=== PATIENT | female | born 1965 | race Caucasian/White ===

== ENCOUNTER 2020-04-25 08:35 | Outpatient (CLI) | payer OTHER, SELFPAY ==
--- NOTE | ~2020-04-25 | MM_ITS ---
EXAMINATION: MM screening farhan BI w harriet HISTORY: Screening TECHNIQUE: Craniocaudal and mediolateral oblique 3-D tomosynthesis images were obtained and synthetic 2-D images were generated. CAD analysis was submitted and interpreted. COMPARISON: Comparison to multiple prior studies sequentially, with oldest reviewed study dated 02/15. BREAST PARENCHYMAL COMPOSITION: The breasts are heterogeneously dense, which may obscure small masses . FINDINGS: There is no evidence of suspicious mass, calcification, or architectural distortion to sugg est malignancy in either breast. There has been no suspicious interval change. IMPRESSION: 1. No mammographic evidence of malignancy. 2. Recommend routine screening mammography in one year. BI-RADS Category 1: Negative Reviewed, dictated and finalized at location A. [employer]OR OF ANALYTICAL DEVELOPMENT
== END 2020-04-25 08:36 | disposition home or self-care (01) ==
PROVIDERS: PCP Family Medicine; Visit Provider Obstetrics & Gynecology
DX: Z12.31 Encounter for screening mammogram for malignant neoplasm of breast (principal)
CPT/HCPCS: 77063; 77067

== ENCOUNTER 2021-09-06 10:37 | Outpatient (CLI) | payer OTHER, SELFPAY ==
--- NOTE | ~2021-09-06 | MM_ITS ---
EXAMINATION: MM screening farhan BI w harriet HISTORY: Screening mammogram TECHNIQUE: Craniocaudal and mediolateral oblique 3-D tomosynthesis images were obtained and synthetic 2-D images were generated. CAD analysis was submitted and interpreted. COMPARISON: 04/25/2020, 02/22/2019, 11/11/2017 bilateral screening mammogram examinations BREAST PARENCHYMAL COMPOSITION: The breasts are heterogeneously dense, which may obscure small masses . FINDINGS: There is no evidence of suspicious mass, calcification, or architectural distortion to sugg est malignancy in either breast. There has been no suspicious interval change. IMPRESSION: 1. No mammographic evidence of malignancy. 2. Recommend routine screening mammography in one year. BI-RADS Category 1: Negative Reviewed, dictated and finalized at location A.
== END 2021-09-06 10:38 | disposition home or self-care (01) ==
PROVIDERS: PCP Family Medicine; Visit Provider Obstetrics & Gynecology
DX: Z12.31 Encounter for screening mammogram for malignant neoplasm of breast (principal)
CPT/HCPCS: 77063; 77067

== ENCOUNTER → 2022-08-21 15:49 | Outpatient (CLI) | payer OTHER, SELFPAY ==
--- NOTE | ~2022-08-21 | US_ITS ---
EXAMINATION: US retroperitoneal duplex ltd DATE: 08/21/2022 16:44 INDICATION: Renal artery stenosis. Hypertension. TECHNIQUE: Multiple grayscale, color Doppler, and pulsed Doppler images of the kidneys and renal malinda zheng were obtained. COMPARISON: 03/14/2015 FINDINGS: The aorta peak systolic velocity is 121 cm/s. The right renal artery peak systolic velocity is 199 cm /s in the proximal segment, 161 cm/s in the mid segment, and 75 cm/s in the distal segment. The left renal artery peak systolic velocity is 90 cm/s in the proximal segment, 125 cm/s in the mid segment, and 64 cm/s in the distal segment. IMPRESSION: 1. Unchanged elevation peak systolic velocities in the proximal right renal artery consistent with r enal artery stenosis >50-60%. 2. Normal peak systolic velocities in the left renal artery with no hemodynamically significant steno sis. Reviewed, dictated and finalized at location A. IMPRESSION: 1. Unchanged elevation peak systolic velocities in the proximal right renal ar michael consistent with renal artery stenosis >50-60%. 2. Normal peak systolic velocities in the left renal artery with no hemodynamic ally significant stenosis.
== END ==
PROVIDERS: PCP Nurse Practitioner Family; Visit Provider Nurse Practitioner
DX: I70.1 Atherosclerosis of renal artery (principal)
CPT/HCPCS: 93976

== ENCOUNTER 2023-02-18 15:57 | Outpatient (CLI) | payer OTHER, SELFPAY ==
--- NOTE | ~2023-02-18 | MM_ITS ---
EXAMINATION: MM screening farhan BI w harriet HISTORY: Screening mammogram, family history of breast cancer in her mother. TECHNIQUE: Craniocaudal and mediolateral oblique 3-D tomosynthesis images were obtained and synthetic 2-D images were generated. CAD analysis was submitted and interpreted. COMPARISON: 09/06/2021, 04/25/2020, 02/22/2019 BREAST PARENCHYMAL COMPOSITION: There are scattered areas of fibroglandular density. FINDINGS: No suspicious mass, calcification, or architectural distortion are identified in either clementine ast to suggest malignancy. There has been no suspicious interval change. IMPRESSION: 1. No mammographic evidence of malignancy. 2. Recommend routine screening mammography in one year. BI-RADS Category 1: Negative Reviewed, dictated and finalized at location A.
== END 2023-02-18 15:58 | disposition home or self-care (01) ==
LOC: ANHIMG 15:59
PROVIDERS: PCP Nurse Practitioner Family; Visit Provider Obstetrics & Gynecology
DX: Z12.31 Encounter for screening mammogram for malignant neoplasm of breast (principal)
CPT/HCPCS: 77063; 77067

== ENCOUNTER 2023-12-14 14:19 | Outpatient (CLI) | payer OTHER, SELFPAY ==
--- NOTE | 2023-12-14 14:34 | ECG_ITS ---
Test Date: 2023-12-14 15:07:56 Measurements Intervals [place] Rate: 76 P: 31 AK: 144 QRS: 38 QRSD: 89 T: 36 QT: 395 QTc: 446 Interpretive Statements SINUS RHYTHM BASELINE ARTIFACT- I, II, III, AVR, AVL, AVF, V4-V6 NORMAL ECG No previous ECG available for comparison Electronically Signed On 12-14-2023 15:11:35 CDT by Humberto Peterson D.O.
[2023-12-14 15:18] LABS: Basophils Absolute Auto 0.1 K/mm3 (0.0-0.1); Basophils Percent Auto 0.7 % (0.2-1.2); Eosinophils Absolute Auto 0.1 K/mm3 (0-0.3); Eosinophils Percent Auto 1.4 % (0-4.4); Hemoglobin 12.7 g/dL (12.0-15.0); Immature Granulocyte Absolute 0.02 K/mm3 (0.00-0.031); Immature Granulocyte Percent A 0.2 % (0-0.5); Lymphocytes Absolute Auto 3.25 K/mm3 (0.9-3.2); Lymphocytes Percent Auto 37.8 % (18.3-44.2); Mean Corpuscular HGB Conc 33.4 g/dl (32-36); Mean Corpuscular Hemoglobin 30.4 pg (26-34); Mean Corpuscular Volume 90.9 fl (80-100); Mean Platelet Volume 9.4 fl (7.4-10.4); Monocytes Absolute Auto 0.7 K/mm3 (0.1-0.6); Monocytes Percent Auto 8.5 % (2.6-8.5); Neutrophils Absolute Auto 4.4 K/mm3 (1.3-6.7); Neutrophils Percent Auto 51.4 % (45.5-73.1); Platelet Count Result 341 k/mm3 (150-375); Red Blood Count 4.18 M/mm3 (4.2-5.4); Red Cell Distribution Width 11.4 % (11.5-14.5); White Blood Count 8.6 K/mm3 (4.5-10.0)
== END 2023-12-14 14:20 | disposition home or self-care (01) ==
LOC: ANHSURGERY 14:30
PROVIDERS: PCP Family Medicine; Visit Provider Obstetrics & Gynecology
DX: N81.4 Uterovaginal prolapse, unspecified (principal); I10 Essential (primary) hypertension; Z01.818 Encounter for other preprocedural examination
CPT/HCPCS: 36415; 85025; 86850; 86900; 86901; 93005

== ENCOUNTER 2023-12-18 00:37 | Day surgery (SDC) | payer OTHER, SELFPAY ==
[2023-12-14 10:28] VITALS: BMI 27.5
--- NOTE | 2023-12-14 10:29 | PC.NURSE ---
Report to the Outpatient Waiting Room, entrance under the green pavilion located off [facility], at time _0600_ on date _[id number]_. Planned Procedure Time: _0730_. Time changes happen often and if your time is changed the preop area will call you the afternoon before. - You and your visitor will be asked to self-screen and do not enter if you have any COVID symptoms. - A mask is optional within the hospital at this time. Patients may have clear liquids (water, carbonated beverages, clear teas, apple juice) until 3 hours prior to surgery with a maximum of 20 ounces. - No food from midnight until time of surgery Take the following medications with a SIP of water the morning of surgery: __None DO NOT STOP ANY OF YOUR OTHER PRESCRIPTION MEDICATIONS PRIOR TO SURGERY ?EXCEPT THE FOLLOWING Medications to discontinue per physician Vitamins and fish oil Date to take last [id number] Please no make-up, nail kinyarwanda, hairspray, perfume, deodorant, or body powder the day of surgery. No jewelry (including any body piercings) or valuables the day of surgery, leave them at home. Please take a shower or bath the night before, or the morning of, surgery with an antibacterial soap. Wear comfortable, loose fitting clothing. - Jewelry must be removed prior to entering the operating room. Rings and piercings that are not removed may be cut off. - The hospital will not accept responsibility for valuables. - Please leave all valuables, including medications, at home the day of surgery. If you are going home after surgery, a licensed courier delivery driver must drive you home. - NO public transportation without another adult if you receive anesthesia. - We recommend that an adult stay with you for 24 hours following discharge. - We also recommend that you do not drive, make important decision, drink alcoholic beverages, or take any drugs that were not prescribed by your health care provider for at least 24 hours after your discharge time. Follow any additional instructions given to you from your surgeon. If you or anyone in your household have experienced Covid symptoms in the past week, please notify your surgeon or the nurse liaison at the phone number below for possible testing. Telephone instructions given to _Deborah__and asked if any additional questions and then verbalized understanding. Patient advised to call surgeon office or pre surgery nurse liaison [phone] if any additional questions.
--- NOTE | 2023-12-16 06:35 | PM.IMHP ---
H&P: HPI History of Present Illness Date/Time: 12/16/23 06:35 Chief Complaint: Recurrent high-grade dysplasia/pelvic pain/uterine prolapse Narrative: This is a 58-year-old 2 para 2 admitted for robotic hysterectomy bilateral salpingo-oophorectomy secondary to recurrent abnormal Paps including high-grade dysplasia a . She has had a negative endometrial biopsy and negative endocervical curette. He also has uterine prolapse would like to have this definitively fix. Risks and benefits were reviewed including the exclusive of , aspiration pneumonia, bleeding, transfusion, perforation injury to bowel, bladder, ureters, or other internal organs with need for open laparotomy. She had all questions answered. She received the ACOG handouts entitled hysterectomy as well as the de Kaylie handout. She asked to proceed PMFSH Past Medical History Medical History Essential (primary) hypertension (~2014) Hyperlipidemia LDL goal <100 (~2014) Migraine (~2014) Renal artery stenosis (~2014) Surgical History Surgical History S/P cholecystectomy (~2004) Family History Family History Sibling Hypertension Family history of type 2 diabetes mellitus Social History Social History Smoking status: Never smoker Alcohol intake: current Alcohol use details: rarely Substance use: never Substance use type: does not use Lack of Transportation: No Lack of Food: Never True Current Housing: I Have Housing Concerned About Future Housing: No Difficulty Paying Gas/Electric Bills: No Difficulty Paying for Meds: No Currently Unemployed: No Education: High School Diploma/GED Difficulty w/ Childcare or Family Care: No Living arrangements: with family Occupation/Education: occupation Gender identity (if verbalized by the patient): Female Sexual Orientation (if Verbalized by the Patient): Straight or Heterosexual Spiritual care concerns: No Agree to blood products: Yes Meds Home Medications and Allergies Home Medications Medication Instructions Recorded Confirmed Type sumatriptan succinate 50 mg tablet 50 mg PO ONCE #7 tabs 04/21/22 12/14/23 Rx estradiol-norethindrone acet 1 1 tablet PO DAILY 06/13/22 12/14/23 History mg-0.5 mg tablet propranolol 80 mg capsule,24 80 mg PO DAILY #90 caps 10/01/23 12/14/23 Rx hr,extended release rosuvastatin 20 mg tablet 20 mg PO DAILY #90 tabs 10/01/23 12/14/23 Rx fenofibrate 54 mg tablet 54 mg PO DAILY #90 tabs 11/25/23 12/14/23 Rx cholecalciferol (vitamin D3) 25 25 mcg PO DAILY 12/14/23 12/14/23 History mcg (1,000 unit) capsule (Vitamin D3) diphenhydramine HCl 25 mg capsule 25 mg PO HS 12/14/23 12/14/23 History (Benadryl) magnesium 250 mg tablet 250 mg PO DAILY 12/14/23 12/14/23 History omega 9-mpw-qrh-fish oil 1,200 mg 1 cap PO DAILY 12/14/23 12/14/23 History (144 mg-216 mg) capsule (Fish Oil) Allergies Allergy/AdvReac Type Severity Reaction Status Date / Time No Known Allergies Allergy Mild Verified 12/14/23 10:16 Exam Const: General: cooperative, healthy appearing and comfortable Nutritional Appearance: average body habitus Orientation/consciousness: oriented to person, oriented to place and oriented to time Resp: Effort & Inspection: normal respiratory effort Cardio: Rate: regular rate Rhythm: regular rhythm Heart sounds: S1 normal heart sound present and S2 normal heart sound present GI: Inspection: normal to inspection : External Female Exam: normal external appearance Speculum Exam - Vagina: normal appearance of the vagina Speculum Exam - Cervix: normal appearance of the cervix Bimanual exam- vagina & uterus: enlarged, Uterine tenderness and other (Second-degree prolapse present) Bim
[2023-12-18] VITALS (14 sets, daily range): BP systolic 109–134; BP diastolic 53–90; PULSE 57–92; RESP 10–18; TEMP 36.2–36.6; O2SAT 93–100
--- NOTE | 2023-12-18 05:17 | WPDHPUPDATE1 ---
History and Physical Update Update Date/Time: 12/18/23 05:17 History and Physical has been reviewed, including an updated exam of the patient. There are NO changes in the patient's condition. Risks, benefits, and alternatives have been discussed and questions answered. Patient agrees to proceed with procedure.
[2023-12-18] MEDS: LACTATED RINGERS 1,000 ML 30 ML IV CONT ×2 (06:30→08:49)
[2023-12-18] MEDS: ACETAMINOPHEN 500 MG TABLET 1000 MG PO (06:34)
[2023-12-18] MEDS: KETOROLAC 15 MG/ML VIAL (*BKC) IV PUSH (06:34)
--- NOTE | 2023-12-18 06:47 | WPDANESEPPF ---
Anes - Initial Pre Proc Eval Procedure: Operation Date: 12/18/23 07:30 Proposed Procedures p Robotic Assisted Total Vaginal Hysterectomy with Bilateral Salpingectomy - John Wisdom MD Date/Time: 12/18/23 06:47 Surgeon: John Wisdom MD Pre Op Diagnosis: Uterine Prolapse, Recurrent Abnormal Pap Patient Data Age: 58 Gender: F Height: 1.63 m Weight: 72.7 kg Allergies Allergy/AdvReac Type Severity Reaction Status Date / Time No Known Allergies Allergy Mild Verified 12/14/23 10:16 Home Medications Medication Instructions Recorded Confirmed Type sumatriptan succinate 50 mg tablet 50 mg PO ONCE #7 tabs 04/21/22 12/14/23 Rx estradiol-norethindrone acet 1 1 tablet PO DAILY 06/13/22 12/14/23 History mg-0.5 mg tablet propranolol 80 mg capsule,24 80 mg PO DAILY #90 caps 10/01/23 12/14/23 Rx hr,extended release rosuvastatin 20 mg tablet 20 mg PO DAILY #90 tabs 10/01/23 12/14/23 Rx fenofibrate 54 mg tablet 54 mg PO DAILY #90 tabs 11/25/23 12/14/23 Rx cholecalciferol (vitamin D3) 25 25 mcg PO DAILY 12/14/23 12/14/23 History mcg (1,000 unit) capsule (Vitamin D3) diphenhydramine HCl 25 mg capsule 25 mg PO HS 12/14/23 12/14/23 History (Benadryl) magnesium 250 mg tablet 250 mg PO DAILY 12/14/23 12/14/23 History omega 5-xdq-nwj-fish oil 1,200 mg 1 cap PO DAILY 12/14/23 12/14/23 History (144 mg-216 mg) capsule (Fish Oil) hydrocodone 5 mg-acetaminophen 325 1 tablet PO Q4H PRN pain #30 tabs 12/18/23 Rx mg tablet Patient hx anesthesia problems: none Family hx anesthesia problems: none Results Review: All pre-operative results and documents have been reviewed as part of the pre-operative evaluation. [facility] Past Medical History Medical History Essential (primary) hypertension (~2014) Hyperlipidemia LDL goal <100 (~2014) Migraine (~2014) Renal artery stenosis (~2014) Surgical History Surgical History S/P cholecystectomy (~2004) Family History Family History Sibling Hypertension Family history of type 2 diabetes mellitus Social History Social History Smoking status: Never smoker Alcohol intake: current Alcohol use details: rarely Substance use: never Substance use type: does not use Lack of Transportation: No Lack of Food: Never True Current Housing: I Have Housing Concerned About Future Housing: No Difficulty Paying Gas/Electric Bills: No Difficulty Paying for Meds: No Currently Unemployed: No Education: High School Diploma/GED Difficulty w/ Childcare or Family Care: No Living arrangements: with family Occupation/Education: occupation Gender identity (if verbalized by the patient): Female Sexual Orientation (if Verbalized by the Patient): Straight or Heterosexual Spiritual care concerns: No Agree to blood products: Yes Anes - Eval Final PreProcedure Day of Procedure 12/18/23 06:47 Patient weight: overweight Heart: regular rate and rhythm Lungs: clear to auscultation Airway: Mallampati scale class II Neurological: alert and oriented Last oral intake: >/= 8 hours ASA classification: II Emergent: no Anesthetic plan: proceed Anesthesia type and monitoring: general ETT and standard monitoring Results Review: All pre-operative results and documents have been reviewed as part of the pre-operative evaluation. Informed Consent: The patient's anesthetic plan and its attendant risks and benefits were discussed with the patient/family/POA. Questions were solicited and answers provided to the satisfaction of the patient/family/POA.
[2023-12-18] MEDS: SCOPOLAMINE 1 MG PATCH 1 PATCH TRANSDERM (07:00)
[2023-12-18] MEDS: ceFAZolin 2 GM/D5W 50 ML 2 GM/50 ML BAG IVPB (07:43)
--- NOTE | 2023-12-18 08:41 | W.PM.PROC2 ---
Procedure Note - Detailed Date of Procedure 12/18/23 Pre-op Diagnosis Uterine Prolapse, Recurrent Abnormal Pap Post-op Diagnosis Same Procedure Performed robotic Total vaginal hysterectomy bilateral salpingo-oophorectomy Surgeon John Wisdom MD Anesthesia General Indications this is a 58-year-old female with recurrent abnormal Paps and uterine prolapse and pelvic pain Findings uterine prolapse was seen. Moderate size uterine fibroid. Normal appearing ovaries and tubes. Description of Procedure the patient is prepped and draped in the normal sterile fashion placed in dorsal lithotomy position. Under excellent general tracheal anesthesia weighted speculum placed in posterior fornix vagina. Anterior lip of the cervix grasped with single-tooth tenaculum. Uterus sounded to 11cm. Serial dilatation with fragmented dilators performed followed passes the 10. SHANTA and the 3. 0.5 cold cup. This weighted speculum was removed and the single-tooth was removed. The gloves were changed. A supraumbilical incision was made the previous supraumbilical incision site. Veress needle passed in the abdomen. Abdomen filled with CO2 gas [id number]. The 8mm trocar advanced under direct visualization with the vision visualizing scope and no injury seen. Patient placed in 18? Trendelenburg. Right left lateral quadrant incisions were made 8mm trocars advanced under direct visualization assuring no injury. A right upper quadrant incision was then made. The 8mm trocar preschool assistant principal port was entered without injury. Robot was docked. Attention was turned to the marriage counselor minister. The left round ligament was grasped, burned, cut. Anterior bladder flap was formed by sharply dissecting the peritoneum and reflecting it laterally and caudally away from the cervix uterus the opposite round ligament was clamped, burned, cut. Next the left infundibulopelvic structure was skeletonized to remove the left ovary and tube. This was serially clamped, burned, cut and brought to level previously cut round ligament. In similar fashion on the right the infundibulopelvic structures were skeletonized and clamped, burned, cut to remove the right ovary and tube. This was brought to low previous cut round ligament. The cardinal broad ligaments on the left were skeletonized hugging the e back to the midline. cervix and uterus clamping burning cutting and bringing this down to the tortuous blood vessels on the left. These were individually clamped, burned, cut. In similar fashion on the right the cardinal broad ligaments were serially skeletonized clamping, burning, cutting until the uterine vessels could be seen on the right. These were individually clamped, burned, cut. Blanching the uterus was noted and a colpotomy incision made. Cervix uterus ovaries and tubes and removed through the vagina. The vagina was then closed with continuous running 0V lock from lateral edge . The vagina was then sprinkled with [place] term over the raw surface area. The robot was undocked. The gas removed from the abdomen. The incisions closed with 4-0 Monocryl glue. The patient was awakened were prepped in satisfactory condition. All sponge, needle, instrument counts were correct. There were no immediate complications Estimated Blood Loss 25 Drains No Packing No Pathology Yes Complications No immediate complications Condition Stable Disposition PACU
--- NOTE | 2023-12-18 08:47 | PM.DS ---
DS: Admitting Diagnosis Discharge Date 12/19/2023 Admitting Diagnosis uterine fibroids/uterine prolapse/recurrent dysplasia DS: Discharge Diagnosis Discharge Diagnosis (1) Abnormal Pap smear of cervix: Code(s): R87.619 - Unspecified abnormal cytological findings in specimens from cervix uteri Status: Acute (2) Pelvic pain: Code(s): R10.2 - Pelvic and perineal pain Status: Acute (3) Uterine prolapse: Code(s): N81.4 - Uterovaginal prolapse, unspecified Status: Acute DS: Summary Hospital Course Reason for hospitalization: patient was admitted for robotic total vaginal hysterectomy and bilateral salpingo-oophorectomy on 12/18/2023. Hospital Course: Patient's hospital course unremarkable. She remained afebrile. She was up, voiding without difficulty, eating a, ambulating generally without complaints. Time Spent with Patient Time attestation: Total time spent providing and/or coordinating discharge services: Exam Const: General: cooperative, healthy appearing and comfortable Nutritional Appearance: average body habitus Orientation/consciousness: oriented to person, oriented to place and oriented to time HENMT: Head: normal to inspection Resp: Effort & Inspection: normal respiratory effort Cardio: Rate: regular rate Rhythm: regular rhythm Heart sounds: S1 normal heart sound present and S2 normal heart sound present GI: Inspection: normal to inspection and incision ( Wounds are clean dry and intact) DS: Data Data Completed and Pending Pending studies at discharge: Pending at discharge 12/18/23 08:38 Surgical [PTH] Routine Discharge Plan Discharge Patient Disposition: Home, Self-Care Discharge Instructions: Remove the Scopolamine patch that was placed behind your ear in 72 hours or less. Wash your hands after touching. Stand Alone Forms: General Discharge Instructions Follow-up/Referrals: John Novoa MD [Physician] - Discharge Medications: New hydrocodone-acetaminophen 5-325 mg tablet 1 tablet PO Q4H PRN (Reason: pain) Qty: 30 0RF No Action estradiol-norethindrone acet 1-0.5 mg tablet 1 tablet PO DAILY Rx Instructions: Takes in evening. diphenhydramine HCl [Benadryl] 25 mg Capsule 25 mg PO HS magnesium 250 mg Tablet 250 mg PO DAILY cholecalciferol (vitamin D3) [Vitamin D3] 25 mcg (1,000 unit) Capsule 25 mcg PO DAILY omega 6-keq-dfm-fish oil [Fish Oil] 1,200 (144-216) mg Capsule 1 cap PO DAILY sumatriptan succinate 50 mg tablet 50 mg PO ONCE Qty: 7 1RF propranolol 80 mg capsule,extended release 24hr 80 mg PO DAILY Qty: 90 1RF Rx Instructions: Takes in evening. rosuvastatin 20 mg tablet 20 mg PO DAILY Qty: 90 1RF Rx Instructions: Takes in evening fenofibrate 54 mg tablet 54 mg PO DAILY Qty: 90 1RF Rx Instructions: Takes in evening
[2023-12-18] MEDS: fentaNYL CITRATE INJ (*CRX) 100 MCG/2 ML VIAL 25 MCG IV PUSH ×6 (09:13→09:45)
[2023-12-18] MEDS: ONDANSETRON INJ 4 MG/2 ML VIAL IV PUSH (09:16)
[2023-12-18] MEDS: HYDROmorphone HCL INJ (*CRX) 1 MG/ML SYR 0.5 MG IV PUSH ×2 (09:57→10:09)
--- NOTE | 2023-12-18 10:39 | PC.NURSE ---
pt arrived to [facility] Room 301 at 1035.
--- NOTE | 2023-12-18 10:58 | ADMGEN ---
This patient, Wendie Rees, was admitted to [facility] Surg Room 301-01. Patient/family oriented to hospital policies and general routines including ID bracelet, bed and alarms, visiting hours, pain management, procedures, bathroom and other care routines, personal items, smoking policy, room service/diet, and visiting hours. Information on how to activate the Rapid Response Team has been discussed. Patient/Family are encouraged to report perceived risks to care and to ask questions if they do not understand what they are told or what they should do.
[2023-12-18] MEDS: ENOXAPARIN 40 MG/0.4 ML SYRINGE SUB-Q (12:13)
[2023-12-18] MEDS: SIMETHICONE 80 MG TAB.CHEW PO ×2 (12:13→17:57)
[2023-12-18] MEDS: DOCUSATE SODIUM 100 MG CAPSULE PO ×2 (12:13→17:57)
[2023-12-18] MEDS: DEXTROSE 5%/LACTATED RINGERS 1,000 ML 125 ML IV CONT (12:17)
[2023-12-18] MEDS: HYDROcodone/acetaminophen (*CRX) 5-325 MG TABLET 1 TAB PO ×2 (16:09→22:30)
[2023-12-19] VITALS: BP 110/60; PULSE 71; RESP 20; TEMP 36.4; O2SAT 95
[2023-12-19 03:55] VITALS: BP 115/61; PULSE 79; RESP 20; TEMP 36.3; O2SAT 95
[2023-12-19] MEDS: HYDROcodone/acetaminophen (*CRX) 5-325 MG TABLET 1 TAB PO ×2 (03:58→08:26)
[2023-12-19 05:46] LABS: Basophils Percent Auto 0.2 % (0.2-1.2); Hematocrit 34.1 % (37.0-47.0); Hemoglobin 11.4 g/dL (12.0-15.0); Immature Granulocyte Absolute 0.24 K/mm3 (0.00-0.031); Immature Granulocyte Percent A 1.5 % (0-0.5); Lymphocytes Absolute Auto 2.69 K/mm3 (0.9-3.2); Lymphocytes Percent Auto 16.7 % (18.3-44.2); Mean Corpuscular HGB Conc 33.4 g/dl (32-36); Mean Corpuscular Hemoglobin 30.6 pg (26-34); Mean Corpuscular Volume 91.7 fl (80-100); Mean Platelet Volume 9.6 fl (7.4-10.4); Monocytes Absolute Auto 0.9 K/mm3 (0.1-0.6); Monocytes Percent Auto 5.8 % (2.6-8.5); Neutrophils Absolute Auto 12.2 K/mm3 (1.3-6.7); Neutrophils Percent Auto 75.8 % (45.5-73.1); Platelet Count Result 259 k/mm3 (150-375); Red Blood Count 3.72 M/mm3 (4.2-5.4); Red Cell Distribution Width 11.4 % (11.5-14.5); White Blood Count 16.1 K/mm3 (4.5-10.0)
--- NOTE | 2023-12-19 06:37 | PC.NURSE ---
On 12/19/23, the ASSISTANT PROGRAM MANAGER, [Sameera ], provided care and completed [employer] documentation on this patient. I have reviewed the ASSISTANT PROGRAM MANAGER's documentation and agree with the findings.
--- NOTE | 2023-12-19 07:27 | PM.GYNPNOP ---
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 Postoperative Procedures: Procedures Operation Date: 12/18/23 07:30 Actual Procedure Side Surgeon p Robotic Assisted Total Vaginal Hysterectomy with Bilateral Salpingo-oophorectomy Bilateral John Wisdom MD Postoperative day: 1 Postoperative status: doing well Postoperative plan: routine post-op care, see orders, ambulate, advance diet, voiding trials and discharge Time Spent With Patient Time: Total time spent is greater than 50% in coordination of care (as documented) at patient's floor/unit and/or counseling patient: Time with patient: less than 15 minutes GARNETT MACHINE OPERATOR HELPER- PN:Subj Post-Op Subjective Date/time seen: 12/19/23 07:27 Subjective: patient has no complaints, patient desires discharge, pain is well controlled and patient is tolerating oral intake Exam Const: General: cooperative, healthy appearing and comfortable Nutritional Appearance: average body habitus Orientation/consciousness: oriented to person, oriented to place and oriented to time Resp: Effort & Inspection: normal respiratory effort Cardio: Rate: regular rate Rhythm: regular rhythm Heart sounds: S1 normal heart sound present and S2 normal heart sound present GI: Inspection: normal to inspection and incision (cdi) GARNETT MACHINE OPERATOR HELPER - PN: Obj Data Vital Signs Vital Signs: Vital Signs - 24 hr 12/18/23 08:49 12/18/23 09:05 12/18/23 09:20 Temperature 97.5 F L Pulse Rate 68 75 60 Respiratory Rate 10 L 12 12 Blood Pressure 114/66 134/90 132/73 Pulse Oximetry 99 100 100 Oxygen Delivery Simple Face Mask Simple Face Mask Simple Face Mask Oxygen Flow Rate 6 8 8 12/18/23 09:35 12/18/23 09:50 12/18/23 10:05 Temperature Pulse Rate 67 73 60 Respiratory Rate 14 12 14 Blood Pressure 125/67 127/68 121/67 Pulse Oximetry 99 98 95 Oxygen Delivery Room Air Room Air Room Air Oxygen Flow Rate 12/18/23 10:20 12/18/23 10:40 12/18/23 10:55 Temperature 97.8 F 97.7 F Pulse Rate 65 75 60 Respiratory Rate 12 18 18 Blood Pressure 121/69 116/67 118/53 L Pulse Oximetry 94 93 93 Oxygen Delivery Room Air Oxygen Flow Rate 12/18/23 11:25 12/18/23 12:25 12/18/23 16:14 Temperature 97.6 F 97.7 F 97.2 F L Pulse Rate 57 L 65 92 Respiratory Rate 16 16 16 Blood Pressure 109/59 L 122/74 123/68 Pulse Oximetry 95 95 94 Oxygen Delivery Oxygen Flow Rate 12/18/23 11:00 12/18/23 20:00 12/18/23 20:00 Temperature 97.1 F L Pulse Rate 87 Respiratory Rate 14 Blood Pressure 116/58 L Pulse Oximetry 96 Oxygen Delivery Room Air Room Air Oxygen Flow Rate 12/19/23 00:00 12/19/23 03:55 Temperature 97.6 F 97.4 F L Pulse Rate 71 79 Respiratory Rate 20 20 Blood Pressure 110/60 115/61 Pulse Oximetry 95 95 Oxygen Delivery Oxygen Flow Rate Intake/Output Intake/Output: Intake & Output 12/16/23 12/17/23 12/18/23 12/19/23 23:59 23:59 23:59 23:59 Intake Total 2030 Output Total 1150 1100 Balance 880 -1100 Meds/Results Medications: Active Medications Generic Name Dose Route Start Last Admin Trade Name Freq PRN Reason Stop Dose Admin Hydrocodone Bitart/Acetaminophen 1 tab 12/18/23 10:29 12/19/23 03:58 Hydrocodone/Acetaminophen (*Crx) 5-325 Mg Tablet PO 1 tab Q3H PRN Administration Pain Rated 5 or Less Hydrocodone Bitart/Acetaminophen 1 tab 12/18/23 10:29 Hydrocodone/Acetaminophen (*Crx) 10-325 Mg Tablet PO Q3H PRN Pain Rated 6 or Greater Docusate Sodium 100 mg 12/18/23 10:29 12/18/23 17:57 Docusate Sodium 100 Mg Capsule PO 100 mg BID YAZMIN Administration Enoxaparin Sodium 40 mg 12/18/23 10:29 12/18/23 12:13 Enoxaparin 40 Mg/0.4 Ml Syringe SUB-Q 40 mg DAILY YAZMIN Administration Ibuprofen 600 mg 12/18/23 10:29 Ibuprofen 600 Mg Tablet PO Q6H PRN Cramping Ketorolac Tromethamine 30 mg 12/18/23 10:29 Ketorolac 30 Mg/Ml Vial (*Bkc) IV PUSH 12/23/23 10:28 Q6H PRN Pain Rated 4-6 Naloxone HCl 0.1 mg 12/18/23 10:29 N
[2023-12-19 08:00] VITALS: BP 114/58; PULSE 65; RESP 18; TEMP 37.1; O2SAT 95
[2023-12-19] MEDS: SIMETHICONE 80 MG TAB.CHEW PO (08:26)
[2023-12-19] MEDS: DOCUSATE SODIUM 100 MG CAPSULE PO (08:26)
[2023-12-19] MEDS: ENOXAPARIN 40 MG/0.4 ML SYRINGE SUB-Q (08:29)
== END 2023-12-19 08:55 | disposition home or self-care (01) ==
LOC: ANHSURGERY 07:03 → ANH3MEDSUR 10:55
PROVIDERS: PCP Family Medicine; Visit Provider Obstetrics & Gynecology
PROC: (CPT 58552; principal; 2023-12-18 07:30)
DX: N81.4 Uterovaginal prolapse, unspecified (principal); N83.202 Unspecified ovarian cyst, left side; N84.0 Polyp of corpus uteri; I10 Essential (primary) hypertension; E78.5 Hyperlipidemia, unspecified
CPT/HCPCS: 58552; S2900; 36415; 85025; 86850; 86900; 86901; 88307; 93005; A9270; J0690; J1100; J1170; J1650; J1885; J2250; J2371; J2405; J2704; J3010; J7030; J7120; J7121

== ENCOUNTER 2024-07-23 07:16 | Outpatient (CLI) | payer OTHER, SELFPAY ==
--- NOTE | ~2024-07-23 | US_ITS ---
EXAMINATION: US thyroid DATE: 07/23/2024 07:33 INDICATION: Thyrotoxicosis, unspecified without thyrotoxic crisis. TECHNIQUE: Multiple ultrasound images of the thyroid were obtained. COMPARISON: None. FINDINGS: The right thyroid lobe measures 4.7 x 2.0 x 1.7 cm. The left thyroid lobe measures 4.8 x 2.2 x 2.0 c m. The thyroid is diffusely heterogeneous and hypoechoic. Vascularity is normal. No discrete nodule. IMPRESSION: 1. Heterogeneous thyroid, which may be seen with chronic lymphocytic (Cory) thyroiditis or Grave s' disease. Reviewed, dictated and finalized at location A. 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 Heterogeneous thyroid, which may be seen with chronic lymphocytic (Cory ) thyroiditis or Graves' disease.
== END 2024-07-23 07:17 | disposition home or self-care (01) ==
LOC: MICIMG 07:17
PROVIDERS: PCP Nurse Practitioner Family; Visit Provider Nurse Practitioner Family
DX: E05.90 Thyrotoxicosis, unspecified without thyrotoxic crisis or storm (principal)
CPT/HCPCS: 76536

== ENCOUNTER 2024-07-27 15:30 | Outpatient (RCR) | payer OTHER, SELFPAY ==
--- NOTE | 2024-06-28 16:16 | OPREHPOC ---
Outpatient Therapy Plan of Care This is a Multidisciplinary Plan of Care that may contain components documented by all disciplines (PT, OT, and ST.) PT Problem 1 PT Problem #1 Knowledge Deficit PT Goal 1 Goal / Goal Update 1. Pt o be IND with issued HEP Target Visit 6 PT Problem 2 PT Problem #2 Pain PT Goal 1 Goal / Goal Update 1. Pt to report no more than 1 headache day a week 2. Pt to report no issues sleeping through the night d/t neck pain PT Problem 3 PT Problem #3 Impaired Range of Motion PT Goal 1 Goal / Goal Update 1. Pt to improve active cervical lateral flexion to 35 deg gustavo 2. Pt to improve active shoulder flexion to 150 deg
--- NOTE | 2024-06-28 16:16 | PTOPEVAL1 ---
Assessment and note entered by Davy Nunez, PT, DPT Evaluation Information Assessment Status Evaluation Diagnosis neck and shoulder pain ICD-10 Condition Codes (PT) Cervicalgia M54.2,Pain in right shoulder M25.511, Pain in left shoulder M25.512 Subjective Information Pt reports chronic shoulder and neck pain, that is a nuisance more than it limits her function. At times it will prevent her from sleeping. 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 States she is very R side dominant, her R shoulder tends to hurt more. Reports a mild headache close to everyday, at the base of her skull. Pt states her goals are to improve ROM and have less pain. She wakes up with her pain in the morning. Reported Pain Level Pain Score 3: Self Report Assessment PT Clinical Summary Pt presents to therapy today for her initial evaluation with a diagnosis of neck and shoulder pain. Today she demonstrates decreased active shoulder and cervical ROM, forward and rounded shoulder, a forward head, and tenderness to palpation at her sub occipitals gustavo. She reports daily cervical headaches. Skilled therapy services are indicated to address the deficits noted above , to improve mobility, and to limit headaches. Plan of Care Interventions Electrical Stimulation,Gait Training,Hot Pack/Cold Pack,Manual Therapy,Neuro Re-education,Patient/ Caregiver Education,Therapeutic Activities, Therapeutic Exercise PT Services Indicated Yes Treatment Frequency and 1x/wk for 6 visits Duration These treatments will address the objective and functional deficits as defined above. The patient will be advanced safely and appropriately in order for the patient to progress towards his/her prior level of function. Additional exercises will be introduced and as well as a comprehensive home exercise program upon discharge, if needed, ?to ensure carryover of functional gains achieved in the clinic. This treatment plan has been reviewed and agreement upon by the patient.
--- NOTE | 2024-07-06 09:22 | PCPTNOTE ---
Patient called to cancel therapy this date due to weather.
--- NOTE | 2024-07-27 16:15 | OPREHPOC ---
Outpatient Therapy Plan of Care This is a Multidisciplinary Plan of Care that may contain components documented by all disciplines (PT, OT, and ST.) PT Problem 1 PT Problem #1 Knowledge Deficit PT Goal 1 Goal / Goal Update 1. Pt o be IND with issued HEP Target Visit 6 Progress Met PT Problem 2 PT Problem #2 Pain PT Goal 1 Goal / Goal Update 1. Pt to report no more than 1 headache day a week 2. Pt to report no issues sleeping through the night d/t neck pain 07/27/24: 1. met, reports no Headaches 2. met Progress Met PT Problem 3 PT Problem #3 Impaired Range of Motion PT Goal 1 Goal / Goal Update 1. Pt to improve active cervical lateral flexion to 35 deg gustavo 2. Pt to improve active shoulder flexion to 150 deg 07/26/24: 1-2. met Progress Met
--- NOTE | 2024-07-27 16:16 | PTOPDC ---
Assessment and note entered by Davy Nunez, PT, DPT Evaluation Information Assessment Status Discharge Diagnosis neck and shoulder pain ICD-10 Condition Codes (PT) Cervicalgia M54.2,Pain in right shoulder M25.511, Pain in left shoulder M25.512 Subjective Information Pt states she is doing much better than when she started therapy, reports 85% improvement. Pt reports no headaches in the last week. Reported Pain Level Pain Score 0: Self Report Assessment PT Clinical Summary Pt presents to therapy today for her progress report following 4 visits of therapy to treat her diagnosis of neck and shoulder pain. Today she demonstrates improved cervical ROM and improved postural awareness. She reports 85% improvement in her overall symptoms. Skilled therapy services are no longer indicated and she will be discharged at this time. Her HEP was progressed and she was encouraged to continue with this. Plan of Care PT Services Indicated No
== END 2024-07-28 08:46 | disposition home or self-care (01) ==
LOC: ANHGOSHPT 15:30
PROVIDERS: PCP Family Medicine; Visit Provider Nurse Practitioner Family
DX: S46.812A Strain of other muscles, fascia and tendons at shoulder and upper arm level, left arm, initial encounter (principal); S46.811A Strain of other muscles, fascia and tendons at shoulder and upper arm level, right arm, initial encounter; M54.2 Cervicalgia
CPT/HCPCS: 97110; 97140; 97161; 97530

== ENCOUNTER 2024-08-12 01:03 | Day surgery (SDC) | payer OTHER, SELFPAY ==
[2024-08-01 15:01] VITALS: BMI 25.7
--- OUTSIDE RECORDS SUMMARY | 2024-08-12 01:05 | XMS_ITS | Clinical Summary ---
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 Gender Identity Not on file Sexual Orientation Not on file Plan of Treatment Health Maintenance Due Date Last Done Comments Hepatitis C Virus (HCV) Screening 1967 TdaP Immunization 1967 Hepatitis B Immunization (1 of 3 - 19+ 3-dose series) 10/23/1986 Pap Smear 10/23/1988 Cervical Cancer Screening (CCS) 10/23/1997 HPV/Cotest 10/23/1997 Colonoscopy 10/23/2012 Colorectal Cancer Screening 10/23/2012 Cologuard 10/23/2017 Immunochemical Fecal Occult Blood 10/23/2017 Mammogram 10/23/2017 Pneumococcal Immunization (5 0+ years) (1 of 1 - PCV) 10/23/2017 Zoster Immunization (1 of 2) 10/23/2017 Influenza Immunization (#1) 2024 SARS-COV-2 Immunization ( season) 2024 Respiratory Syncytial Virus (RSV) Immunization (Adult) (1 - 1-dose 75+ series) 10/23/2042 Meningococcal Immunization (ACWY) Aged Out No longer eligible based on patient's age to complete this topic Pneumococcal Immunization Combined Aged Out No longer eligible based on patient's age to complete this topic Rotavirus Immunization Aged Out No lo nger eligible based on patient's age to complete this topic
[2024-08-12] MEDS: LACTATED RINGERS 1,000 ML 150 ML IV CONT (10:34)
[2024-08-12 10:35] VITALS: BP 128/81; PULSE 66; RESP 16; TEMP 36; O2SAT 98
--- NOTE | 2024-08-12 10:38 | PM.HPGS ---
History of Present Illness History of Present Illness Consent: Risks, benefits, and alternatives have been discussed and questions answered. Patient agrees to proceed with procedure. Chief complaint: Dysphagia Narrative: Wendie Rees is a 58 year old female with intermittent dysphagia and choking sensation, never had egd, she is not using ppi Review of Systems Review of Systems: All systems reviewed & are unremarkable except as noted in HPI and below PMFSH Past Medical History Medical History (Updated 06/21/24 @ 16:51 by Sabine Vila NP) Uterine prolapse (~2023) Renal artery stenosis (~2014) Essential (primary) hypertension (~2014) Hyperlipidemia LDL goal <100 (~2014) Migraine (~2014) Surgical History Surgical History (Updated 06/13/24 @ 13:11 by Sabine Vila NP) Hx of hysterectomy with oophorectomy (~12/18/23) S/P cholecystectomy (~2004) Family History Family History Sibling Hypertension Family history of type 2 diabetes mellitus Social History Social History Smoking status: Never smoker Second hand tobacco smoke exposure: No Alcohol intake: never Alcohol use details: rarely Substance use: never Substance use type: does not use Do You Feel Safe in your Home?: Yes Lack of Transportation: No Lack of Food: Never True Current Housing: I Have Housing Concerned About Future Housing: No Difficulty Paying Gas/Electric Bills: No Difficulty Paying for Meds: No Currently Unemployed: No Education: High School Diploma/GED Difficulty w/ Childcare or Family Care: No Living arrangements: with family Occupation/Education: occupation Gender identity (if verbalized by the patient): Female Sexual Orientation (if Verbalized by the Patient): Straight or Heterosexual Spiritual care concerns: No Agree to blood products: Yes Meds Home Medications and Allergies Home Medications ?Medication ?Instructions ?Recorded ?Confirmed ?Type estradiol-norethindrone acet 1 1 tablet PO DAILY 06/13/22 08/12/24 History mg-0.5 mg tablet cholecalciferol (vitamin D3) 25 25 mcg PO DAILY 12/14/23 08/12/24 History mcg (1,000 unit) capsule (Vitamin D3) diphenhydramine HCl 25 mg capsule 25 mg PO HS 12/14/23 08/12/24 History (Benadryl) magnesium 250 mg tablet 250 mg PO DAILY 12/14/23 08/12/24 History omega 7-upz-izj-fish oil 1,200 mg 1 cap PO DAILY 12/14/23 08/12/24 History (144 mg-216 mg) capsule (Fish Oil) propranolol 80 mg capsule,24 80 mg PO DAILY #90 caps 04/04/24 08/12/24 Rx hr,extended release rosuvastatin 20 mg tablet 20 mg PO DAILY #90 tabs 04/04/24 08/12/24 Rx fenofibrate 54 mg tablet 54 mg PO DAILY #90 tabs 05/24/24 08/12/24 Rx methimazole 5 mg tablet 5 mg PO DAILY #90 tabs 07/20/24 08/12/24 Rx sumatriptan succinate 50 mg tablet 50 mg PO ONCE PRN migraine headache 08/01/24 08/01/24 History Allergies Allergy/AdvReac Type Severity Reaction Status Date / Time No Known Allergies Allergy Mild Verified 08/12/24 10:28 Vital Signs Vital Signs - 24 hr 08/12/24 10:35 Temperature 96.8 F L Pulse Rate 66 Respiratory Rate 16 Blood Pressure 128/81 Pulse Oximetry 98 Oxygen Delivery Room Air Exam Const: General: comfortable and no acute distress HENMT: Face/Nose/Sinus: Normal nares present Eyes: General: appearance normal, both eyes and all related structures Neck: Neck: no JVD Resp: Auscultation: clear to auscultation bilaterally Cardio: Rate: regular rate Rhythm: regular rhythm GI: Inspection: non-distended GI Palp: Yes Soft to palpation Skin: General skin exam: normal color Neuro: General: gait normal Speech: normal speech Extrem: General: normal to inspection Psych: Mental Status: mental status grossly normal Assessment and Plan Assessment and plan (1) Dysphagia: Qualifiers: Dysphagia type: unspecified Qualified Code(s): R13.10 - Dysphagia, unspecified Code(s): R13.10 - Dysphagia, unspecified Status: Acute Assessment and Plan: egd with bx, ? EoE
--- NOTE | 2024-08-12 10:40 | P.PNAN_ITS ---
Anes - Initial Pre Proc Eval Procedure: Operation Date: 08/12/24 14:30 Proposed Procedures p Esophagogastroduodenoscopy - Alfonzo Harris MD Date/Time: 08/12/24 10:40 Surgeon: Alfonzo Harris MD Pre Op Diagnosis: Dysphagia Patient Data Age: 58 Gender: F Height: 1.63 m Weight: 69.2 kg Last Vital Signs Temp 36.0 C L 08/12/24 10:35 Pulse 66 08/12/24 10:35 Resp 16 08/12/24 10:35 BP 128/81 08/12/24 10:35 Pulse Ox 98 08/12/24 10:35 O2 Del Method Room Air 08/12/24 10:35 Allergies Allergy/AdvReac Type Severity Reaction Status Date / Time No Known Allergies Allergy Mild Verified 08/12/24 10:28 Home Medications ?Medication ?Instructions ?Recorded ?Confirmed ?Type estradiol-norethindrone acet 1 1 tablet PO DAILY 06/13/22 08/12/24 History mg-0.5 mg tablet cholecalciferol (vitamin D3) 25 25 mcg PO DAILY 12/14/23 08/12/24 History mcg (1,000 unit) capsule (Vitamin D3) diphenhydramine HCl 25 mg capsule 25 mg PO HS 12/14/23 08/12/24 History (Benadryl) magnesium 250 mg tablet 250 mg PO DAILY 12/14/23 08/12/24 History omega 1-kdp-jww-fish oil 1,200 mg 1 cap PO DAILY 12/14/23 08/12/24 History (144 mg-216 mg) capsule (Fish Oil) propranolol 80 mg capsule,24 80 mg PO DAILY #90 caps 04/04/24 08/12/24 Rx hr,extended release rosuvastatin 20 mg tablet 20 mg PO DAILY #90 tabs 04/04/24 08/12/24 Rx fenofibrate 54 mg tablet 54 mg PO DAILY #90 tabs 05/24/24 08/12/24 Rx methimazole 5 mg tablet 5 mg PO DAILY #90 tabs 07/20/24 08/12/24 Rx sumatriptan succinate 50 mg tablet 50 mg PO ONCE PRN migraine headache 08/01/24 08/01/24 History Patient hx anesthesia problems: none Family hx anesthesia problems: none Results Review: All pre-operative results and documents have been reviewed as part of the pre- operative evaluation. [facility] Past Medical History Medical History Uterine prolapse (~2023) Renal artery stenosis (~2014) Essential (primary) hypertension (~2014) Hyperlipidemia LDL goal <100 (~2014) Migraine (~2014) Surgical History Surgical History Hx of hysterectomy with oophorectomy (~12/18/23) S/P cholecystectomy (~2004) Family History Family History Sibling Hypertension Family history of type 2 diabetes mellitus Social History Social History Smoking status: Never smoker Second hand tobacco smoke exposure: No Alcohol intake: never Alcohol use details: rarely Substance use: never Substance use type: does not use Do You Feel Safe in your Home?: Yes Lack of Transportation: No Lack of Food: Never True Current Housing: I Have Housing Concerned About Future Housing: No Difficulty Paying Gas/Electric Bills: No Difficulty Paying for Meds: No Currently Unemployed: No Education: High School Diploma/GED Difficulty w/ Childcare or Family Care: No Living arrangements: with family Occupation/Education: occupation Gender identity (if verbalized by the patient): Female Sexual Orientation (if Verbalized by the Patient): Straight or Heterosexual Spiritual care concerns: No Agree to blood products: Yes Anes - Eval Final PreProcedure Day of Procedure 08/12/24 10:40 Patient weight: overweight Heart: regular rate and rhythm Lungs: clear to auscultation Airway: Mallampati scale class II Neurological: alert and oriented Last oral intake: >/= 8 hours ASA classification: II Emergent: no Anesthetic plan: proceed Anesthesia type and monitoring: general GIVS and standard monitoring Results Review: All pre-operative results and documents have been reviewed as part of the pre- operative evaluation. Informed Consent: The patient's anesthetic plan and its attendant risks and benefits were discussed with the patient/family/POA. Questions were solicited and answers provided to the satisfaction of the patient/family/POA.
--- NOTE | 2024-08-12 10:45 | P.PNAN_ITS ---
Anes - Eval Final PreProcedure Day of Procedure 08/12/24 10:45 Patient weight: overweight Heart: regular rate and rhythm Lungs: clear to auscultation Airway: Mallampati scale class II Neurological: alert and oriented Last oral intake: >/= 8 hours ASA classification: II Emergent: no Anesthetic plan: proceed Anesthesia type and monitoring: general GIVS and standard monitoring Results Review: All pre-operative results and documents have been reviewed as part of the pre- operative evaluation. Informed Consent: The patient's anesthetic plan and its attendant risks and benefits were discussed with the patient/family/POA. Questions were solicited and answers provided to the satisfaction of the patient/family/POA.
[2024-08-12 10:52] VITALS: BP 128/64; PULSE 80; RESP 18; O2SAT 100
[2024-08-12 11:02] VITALS: BP 101/65; PULSE 81; RESP 18; O2SAT 100
[2024-08-12 11:12] VITALS: BP 114/93; PULSE 76; RESP 18; O2SAT 100
== END 2024-08-12 11:26 | disposition home or self-care (01) ==
PROVIDERS: PCP Nurse Practitioner Family; Referring Provider Nurse Practitioner Family; Visit Provider Internal Medicine Gastroenterology
PROC: 0DJ08ZZ Inspection of Upper Intestinal Tract, Via Natural or Artificial Opening Endoscopic (ICD-10-PCS; CPT 43239; principal; 2024-08-12 14:30)
DX: K22.2 Esophageal obstruction (principal); K29.70 Gastritis, unspecified, without bleeding; K44.9 Diaphragmatic hernia without obstruction or gangrene; E78.5 Hyperlipidemia, unspecified; I10 Essential (primary) hypertension; I70.1 Atherosclerosis of renal artery; Z98.890 Other specified postprocedural states; Z90.49 Acquired absence of other specified parts of digestive tract; Z87.42 Personal history of other diseases of the female genital tract
CPT/HCPCS: 43239; 43249; 88305; C1726; J2704; J7120

== ENCOUNTER 2024-10-31 14:33 | Outpatient (CLI) | payer OTHER, SELFPAY ==
--- NOTE | ~2024-10-31 | MM_ITS ---
EXAMINATION: MM screening farhan BI w harriet HISTORY: Screening TECHNIQUE: Craniocaudal and mediolateral oblique 3-D tomosynthesis images were obtained and synthetic 2-D images were generated. CAD analysis was submitted and interpreted. COMPARISON: Comparison to multiple prior studies sequentially, with oldest reviewed study dated 01/2020. BREAST PARENCHYMAL COMPOSITION: Not dense: There are scattered areas of fibroglandular density. FINDINGS: There is no evidence of suspicious mass, calcification, or architectural distortion to sugg est malignancy in either breast. There has been no suspicious interval change. IMPRESSION: 1. No mammographic evidence of malignancy. 2. Recommend routine screening mammography in one year. BI-RADS Category 1: Negative Reviewed, dictated and finalized at location A.
--- OUTSIDE RECORDS SUMMARY | 2024-10-31 15:44 | XMS_ITS | Clinical Summary ---
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
== END 2024-10-31 14:34 | disposition home or self-care (01) ==
PROVIDERS: PCP Nurse Practitioner Family; Visit Provider Obstetrics & Gynecology
DX: Z12.31 Encounter for screening mammogram for malignant neoplasm of breast (principal)
CPT/HCPCS: 77063; 77067

== ENCOUNTER 2025-03-17 09:48 | Outpatient (CLI) | payer OTHER, SELFPAY ==
--- NOTE | ~2025-03-17 | US_ITS ---
Clinical history:Thyrotoxicosis EXAM:Ultrasound thyroid TECHNIQUE:Multiple static grayscale images and color Doppler images were obtained of the thyroid gland. Comparisons:07/23/2024 FINDINGS: Right thyroid lobe is enlarged and heterogeneous with prominent vascular flow and measures 4.6 x 1.6 x 1.6 cm. Left thyroid lobe is enlarged and heterogeneous with prominent vascular flow and measures 4.0 x 1.6 x 1.7 cm. Isthmus is enlarged and heterogeneous with prominent vascular flow and measures 0.7 cm. There is a 4 x 3 mm hypoechoic solid nodule in the left mid thyroid lobe. TR 4. There is a 5 x 3 x 4 mm hypoechoic solid nodule in the left thyroid lobe. TR 4. There are a few subcentimeter cysts in the thyroid gland. IMPRESSION: 1. The thyroid gland is enlarged and heterogeneous with prominent vascular flow. Consider thyroiditis. Consider a thyroid scan to assess for a cold nodule to determine the need for biopsy. 2. There is a 4 mm hypoechoic solid nodule in the left mid thyroid lobe. TR 4. 3. There is a 5 mm hypoechoic solid nodule in the left thyroid lobe. TR 4. Reviewed, dictated and finalized at location Q. IMPRESSION: 1. The thyroid gland is enlarged and heterogeneous with prominent vascular flow . Consider thyroiditis. Consider a thyroid scan to assess for a cold nodule to determine the need for biopsy. 2. There is a 4 mm hypoechoic solid nodule in the left mid thyroid lobe. TR 4. 3. There is a 5 mm hypoechoic solid nodule in the left thyroid lobe. TR 4.
== END 2025-03-17 09:49 | disposition home or self-care (01) ==
PROVIDERS: PCP Internal Medicine; Visit Provider Internal Medicine
DX: E78.5 Hyperlipidemia, unspecified (principal); I10 Essential (primary) hypertension; I70.1 Atherosclerosis of renal artery; E55.9 Vitamin D deficiency, unspecified; E05.90 Thyrotoxicosis, unspecified without thyrotoxic crisis or storm; E04.2 Nontoxic multinodular goiter
CPT/HCPCS: 76536

== ENCOUNTER 2025-03-27 13:19 | Outpatient (CLI) | payer OTHER, SELFPAY ==
--- NOTE | ~2025-03-27 | NM_ITS ---
EXAMINATION: NM thyroid scan w uptake DATE: 03/28/2025 13:46 INDICATION: Hyperlipidemia COMPARISON: None. TECHNIQUE: 368 microcuries [id number] was administered orally in capsule form. Scintigraphic images of the thyroid gland were obtained at 24 hours. Thyroid uptake was calculated by the technologist. FINDINGS: The thyroid uptake is 43.3% (normal 10-30%), with the right lobe measuring 19.3% uptake and the left 25.4%. There is no focal area of decreased or increased activity to suggest hypofunctioning or hyperfunctioning nodule. IMPRESSION: 1. Normal thyroid scintigraphy with elevated 24-hour iodine uptake consistent with Graves' disease. Reviewed, dictated and finalized at location A. IOVASCULAR TECHNOLOGIST
--- OUTSIDE RECORDS SUMMARY | 2025-03-27 13:33 | XMS_ITS | Clinical Summary ---
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 Gender Identity Not on file Sexual Orientation Not on file Plan of Treatment Health Maintenance Due Date Last Done Comments Hepatitis C Virus (HCV) Screening 1965 TdaP Immunization 1965 Hepatitis B Immunization (1 of 3 - 19+ 3-dose series) 10/23/1986 Pap Smear 10/23/1988 Cervical Cancer Screening (CCS) 10/23/1997 HPV/Cotest 10/23/1997 Cologuard 10/23/2012 Colonoscopy 10/23/2012 Colorectal Cancer Screening 10/23/2012 Immunochemical Fecal Occult Blood 10/23/2012 Pneumococcal Immunization (5 0+ years) (1 of 1 - PCV) 10/23/2017 Zoster Immunization (1 of 2) 10/23/2017 Influenza Immunization (#1) 2025 SARS-COV-2 Immunization ( season) 2025 Respiratory Syncytial Virus (RSV) Immunization (Adult) (1 - 1-dose 75+ series) 10/23/2042 Human Papillomavirus (HPV) Immunization Aged Out No longer eligible b ased on patient's age to complete this topic Meningococcal Immunization (ACWY) Aged Out No longer eligible based on patient's age to complete this topic Rotavirus Immunization Aged Out No lo nger eligible based on patient's age to complete this topic
== END 2025-03-27 13:20 | disposition home or self-care (01) ==
PROVIDERS: PCP Internal Medicine; Visit Provider Internal Medicine
DX: E05.90 Thyrotoxicosis, unspecified without thyrotoxic crisis or storm (principal); E78.5 Hyperlipidemia, unspecified; I10 Essential (primary) hypertension; E55.9 Vitamin D deficiency, unspecified; K21.9 Gastro-esophageal reflux disease without esophagitis; I70.1 Atherosclerosis of renal artery; R13.10 Dysphagia, unspecified
CPT/HCPCS: 78014; A9516